=== PATIENT | male | born 1990 | race Caucasian/White ===

== ENCOUNTER 2018-08-11 20:03 | Emergency (ER) | payer OTHER ==
[~2018-08-11] VITALS: Ht 185.4 cm; Wt 73.0 kg
[2018-08-11 20:27] VITALS: BP 140/83
[2018-08-11] MEDS ORDERED: CYCL10TA2 PO (20:29)
[2018-08-11] MEDS ORDERED: IBUP-1060 PO (20:29)
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
== END 2018-08-11 20:45 | disposition home or self-care (01) ==
LOC: ER 20:03
DX: S40.012A Contusion of left shoulder, initial encounter (principal); M62.830 Muscle spasm of back; R51 Headache; V59.49XA Driver of pick-up truck or van injured in collision with other motor vehicles in traffic accident, initial encounter; Y93.89 Activity, other specified; Y92.410 Unspecified street and highway as the place of occurrence of the external cause; Y99.8 Other external cause status
CPT/HCPCS: 99283